=== PATIENT | female | born 1995 | race Hispanic/Latino ===

== ENCOUNTER 2023-08-05 10:45 | Emergency (ER) | payer BC, OTHER ==
[2023-08-05 12:26] LABS: Absolute Lymphocytes (CBC) 2.1 K/uL (0.7-4.9); Hematocrit 38.9 % (36.0-45.0); Lymphocytes % 18.5 % (15.3-44.8); MCV 86.2 fL (80-100); MPV 9.8 fL (7.6-11.3); Platelets 245 thou/uL (152-406); RBC Red Blood Cell Count 4.52 M/uL (3.86-4.86)
[2023-08-05 12:28] LABS: Specific Gravity 1.024 (1.005-1.030); Urine Bacteria None Seen /HPF (<20); Urine Bilirubin NEGATIVE (Negative); Urine Blood Negative (Negative); Urine Clarity Extremely Turbid (Clear); Urine Color Yellow (Yellow); Urine Glucose NEGATIVE (Negative); Urine Mucus Slight /HPF (None Seen); Urine Protein TRACE (Negative); Urine RBC <5 /HPF (None Seen); Urine Urobilinogen Normal (Normal)
[2023-08-05 12:35] LABS: Potassium 3.6 mEq/L (3.5-5.1)
--- NOTE | 2023-08-05 12:42 | RAD REPORT ---
EXAM DESCRIPTION: US - OB Limited - 08/05/2023 11:27 am CLINICAL HISTORY: ABD CRAMPING, COMPARISON: No comparisons TECHNIQUE: Sonographic grayscale and color flow images of a second -trimester were obtaine d through transabdominal approach. FINDINGS: A single live intrauterine is identified. Fetus is in breech presentation. heart rate: 145 BPM. Placenta has formed posteriorly. Cervical canal is closed. Amniotic fluid index: 13.12 cm, within normal range. Gross survey of the spine, stomach, bladder, and three-vessel cord reveals no suspicious abnorm alities. movement was visualized. Maternal ovaries were not discretely visualized due to over shadowing bowel gas. No free fluid. IMPRESSION: 1. Single live intrauterine in breech presentation. 2. No evidence of complications. Normal AMY.
--- NOTE | 2023-08-05 12:51 | ER ---
Nurse's Notes [facility] Name: Elma Johansen Age: 27 yrs Sex: Female : 1995 Arrival Date: 08/05/2023 Time: 10:45 Bed 12 Private MD: Diagnosis: Pelvic strain Presentation: 08/05 11:04 Chief complaint: Patient states: is having a lot of pelvic pain since Saturday, is iw approx 21 weeks . Coronavirus screen: At this time, the client does not indicate any symptoms associated with coronavirus-19. Ebola Screen: Patient negative for fever greater than or equal to 101.5 degrees Fahrenheit, and additional compatible Ebola Virus Disease symptoms Patient denies exposure to infectious person. Patient denies travel to an Ebola-affected area in the 21 days before illness onset. No symptoms or risks identified at this time. Initial Sepsis Screen: Does the patient meet any 2 criteria? No. Patient's initial sepsis screen is negative. Does the patient have a suspected source of infection? No. Patient's initial sepsis screen is negative. Risk Assessment: Do you want to hurt yourself or someone else? Patient reports no desire to harm self or others. Onset of symptoms. 11:04 Method Of Arrival: Ambulatory iw 11:04 Acuity: RADHA 3 iw Historical: - Allergies: 11:05 No Known Allergies; iw - Home Meds: 11:05 None [Active]; iw - PMHx: 11:05 None; iw Screenin:09 [facility] ED Fall Risk Assessment (Adult) Score/Fall Risk Level 0 - 2 = Low Risk. Abuse iw screen: Denies threats or abuse. Denies injuries from another. Nutritional screening: No deficits noted. Tuberculosis screening: No symptoms or risk factors identified. Assessment: 13:09 General: Appears in no apparent distress. Behavior is calm, cooperative. Pain: iw Complains of pain in pelvis. Neuro: Level of Consciousness is awake, alert, obeys commands, Oriented to person, place, time, situation, Moves all extremities. Full function. Derm: Skin is intact, is healthy with good turgor. Musculoskeletal: Range of motion: intact in all extremities. Vital Signs: 11:04 BP 148 / 92; Pulse 80; Resp 16; Temp 98.1; Pulse Ox 96% on R/A; Weight 102.51 kg; iw Height 5 ft. 7 in. ; Pain 7; 11:04 Body Mass Index 35.40 (102.51 kg, 170.18 cm) iw 11:04 Pain Scale: Adult iw ED Course: 10:53 Patient arrived in ED. mg5 10:53 [facility] 7 10:53 Jerome Cary MD is Attending Physician. [facility] 11:05 Triage completed. iw 11:05 Arm band placed on. iw 11:29 OB Limited In Process Unspecified. EDMS 12:07 Azra Silva, RN is Primary Nurse. iw 12:14 Urinalysis w/ reflexes Sent. iw 12:14 Inserted saline lock: 22 gauge in right antecubital area, using aseptic technique. iw Blood collected. 13:09 No provider procedures requiring assistance completed. IV discontinued, intact, iw bleeding controlled, No redness/swelling at site. Pressure dressing applied. 13:10 Patient has correct armband on for positive identification. Provided Education on: . iw Administered Medications: No medications were administered Medication: 13:10 VIS not applicable for this client. iw Outcome: 12:51 Discharge ordered by . [facility] 13:10 Discharged to home ambulatory, with family, iw 13:10 Condition: good 13:10 Discharge instructions given to patient, Instructed on discharge instructions, follow up and referral plans. Demonstrated understanding of instructions, follow-up care, 13:10 Patient left the ED. iw Signatures: Dispatcher [employer] [facility] Azra Silva, RN RN Marcella Armas FNP [place] [id number] [address] mg5
--- NOTE | 2023-08-05 12:51 | EDPHYS ---
Physician Documentation [facility] Name: Elma Johansen Age: 27 yrs Sex: Female : 1995 Arrival Date: 08/05/2023 Time: 10:45 Bed 12 Private MD: ED Physician Jerome Cary HPI: 08/05 11:00 This 27 yrs old Female presents to ER via Ambulatory with complaints of Pelvic jh7 Pain. 11:00 Onset: The symptoms/episode began/occurred 2 day(s) ago. Associated signs and symptoms: jh7 Pertinent positives: spotting, Pertinent negatives: abdominal pain, chest pain, dysuria, fever, shortness of breath. Patient reports pelvic pain/pressure since Saturday. 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 ELIU 12/10/2023, patient is 21 weeks . Denies fever or urinary symptoms.. Historical: - Allergies: 11:05 No Known Allergies; iw - Home Meds: 11:05 None [Active]; iw - PMHx: 11:05 None; iw ROS: 11:00 Constitutional: Negative for fever, chills, and weight loss, Eyes: Negative for injury, jh7 pain, redness, and discharge, Neck: Negative for injury, pain, and swelling, Cardiovascular: Negative for chest pain, palpitations, and edema, Respiratory: Negative for shortness of breath, cough, wheezing, and pleuritic chest pain, Back: Negative for injury and pain, MS/Extremity: Negative for injury and deformity, Skin: Negative for injury, rash, and discoloration, Neuro: Negative for headache, weakness, numbness, tingling, and seizure, 11:00 : Positive for pelvic pain, vaginal bleeding, Negative for urinary symptoms, 11:00 All other systems are negative, Exam: 11:00 Constitutional: This is a well developed, well nourished patient who is awake, alert, jh7 and in no acute distress. Head/Face: Normocephalic, atraumatic. Eyes: Pupils equal round and reactive to light, extra-ocular motions intact. Lids and lashes normal. Conjunctiva and sclera are non-icteric and not injected. Cornea within normal limits. Periorbital areas with no swelling, redness, or edema. Neck: Trachea midline, no thyromegaly or masses palpated, and no cervical lymphadenopathy. Supple, full range of motion without nuchal rigidity, or vertebral point tenderness. No Meningismus. Cardiovascular: Regular rate and rhythm with a normal S1 and S2. No gallops, murmurs, or rubs. Normal PMI, no JVD. No pulse deficits. Respiratory: Lungs have equal breath sounds bilaterally, clear to auscultation and percussion. No rales, rhonchi or wheezes noted. No increased work of breathing, no retractions or nasal flaring. Back: No spinal tenderness. No costovertebral tenderness. Full range of motion. Skin: Warm, dry with normal turgor. Normal color with no rashes, no lesions, and no evidence of cellulitis. MS/ Extremity: Pulses equal, no cyanosis. Neurovascular intact. Full, normal range of motion. Neuro: Awake and alert, GCS 15, oriented to person, place, time, and situation. Motor strength 5/5 in all extremities. Sensory grossly intact. Normal gait. 11:00 Abdomen/GI: Inspection: abdomen appears normal, Bowel sounds: normal, Palpation: abdomen is soft and non-tender, Vital Signs: 11:04 BP 148 / 92; Pulse 80; Resp 16; Temp 98.1; Pulse Ox 96% on R/A; Weight 102.51 kg; iw Height 5 ft. 7 in. ; Pain 7/10; 11:04 Body Mass Index 35.40 (102.51 kg, 170.18 cm) iw 11:04 Pain Scale: Adult MDM: 10:53 Patient medically screened. [facility] 12:50 Differential diagnosis: Pelvic strain, UTI, threatened . Data reviewed: vital [facility] signs, nurses notes, lab test result(s), radiologic studies, ultrasound. Counseling: I had a detailed discussion with the patient and/or guardian regarding the historical points, exam findings, and any diagnostic results supporting the discharge/admit diagnosis, the need for outpatient follow up, an OB/Gyne specialist, to return to the emergency department if symptoms worsen or persist or if there are any questions or concerns that arise at home. Special discussion: Patient reports that spotting stopped yesterday. 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 Discussed lab and imaging results informing her that her ultrasound showed a live intrauterine . Also discussed elevated blood pressure, and the patient states that was also an issue with her last . She states she will call her OB office and make an appointment. If she develops any new concerning symptoms, she may return to the ER for further eval.. 08/05 10:59 Order name: Basic Metabolic Panel; Complete Time: 12:46 7 08/05 10:59 Order name: CBC with Diff; Complete Time: 12:46 jh7 08/05 10:59 Order name: Urinalysis w/ reflexes; Complete Time: 12:46 jh7 08/05 11:05 Order name: OB Limited; Complete Time: 12:46 EDMS 08/05 10:59 Order name: IV Saline Lock; Complete Time: 12:14 7 08/05 10:59 Order name: Labs collected and sent; Complete Time: 12:14 7 08/05 10:59 Order name: NPO; Complete Time: 12:14 jh7 Administered Medications: No medications were administered Disposition: 18:56 Co-signature as Attending Physician, Jerome Cary MD I reviewed the patient's care rn provided by the Advanced Practice Provider and agree with the diagnosis and treatment plan. Disposition Summary: 08/05/23 12:51 Discharge Ordered Notes: Location: Home [facility] Problem: new [facility] Symptoms: are unchanged [facility] Condition: Stable [facility] Diagnosis - Pelvic strain [facility] Followup: [facility] - With: Private Physician - When: 2 - 3 days - Reason: Recheck today's complaints Discharge Instructions: - Discharge Summary Sheet [facility] - Pelvic Pain, Female [facility] Forms: - Medication Reconciliation Form [facility] - Thank You Letter [facility] - Patient Portal Instructions [facility] - Leadership Thank You Letter [facility] Signatures: Dispatcher [employer] Azra Edmondson RN RN iw Nieto, Roman, MD MD rn Hadash, Jennifer, FNP K[employer]TLE CHIPPER [facility] Corrections: (The following items were deleted from the chart) 11:05 11:00 Pelvis Complete+[email or web address].RAD.BRZ ordered. OSIRIS NEWELL
== END 2023-08-05 13:10 | disposition home or self-care (01) ==
LOC: ER 10:45
DX: O9A.212 Injury, poisoning and certain other consequences of external causes complicating pregnancy, second trimester (principal); S39.013A Strain of muscle, fascia and tendon of pelvis, initial encounter; Z3A.21 21 weeks gestation of pregnancy
CPT/HCPCS: 36415; 76815; 80048; 81001; 85025; 99283